=== PATIENT | female | born 1960 | race Caucasian/White ===

== ENCOUNTER → 2019-01-31 | Outpatient (CLI) | payer BC ==
--- NOTE | 2019-01-31 17:07 | RADIOLOGY IMAGING REPORT ---
FACILITY: [facility] [place] PATIENT NAME: UZAIR JOYNER : [id number] MR: [id number] V: [id number] EXAM DATE: ORDERING PHYSICIAN: PHYLLIS MIGUEL TECHNOLOGIST: Jenny Castro PROCEDURE: BILATERAL DIGITAL SCREENING MAMMOGRAM WITH CAD ASSISTED INTERPRETATION & 3D TOMOSYNTHESIS. REASON FOR STUDY: Screening. FAMILY HISTORY OF BREAST CANCER: Sister at age 58 and paternal aunt. BREAST PROCEDURES/TREATMENTS: None. COMPARISON: 02/09/17. VIEWS OBTAINED: Bilateral 2D & 3D full field CC & MLO projections. BREAST DENSITY: The breasts are almost entirely fatty. MAMMOGRAM FINDINGS: The parenchymal pattern has remained stable allowing for difference in mammographic technique & patient positioning. IMPRESSION: BIRADS 1: Negative. DIAGNOSTIC CATEGORY 1--NEGATIVE. RECOMMENDATIONS: ROUTINE MAMMOGRAM AND CLINICAL EVALUATION. Dictated by: Jaelyn Araujo M.D. on 01/31/2019 at 10:35 Transcribed by: JOSE on 01/31/2019 at 10:44 Approved by: Jaelyn Araujo M.D. on 01/31/2019 at 17:03 [facility]
== END ==
LOC: MAMO 01:42
PROVIDERS: ATTEND Nurse Practitioner Psychiatric/Mental Health
DX: Z12.31 Encounter for screening mammogram for malignant neoplasm of breast (principal); Z80.3 Family history of malignant neoplasm of breast
CPT/HCPCS: 77063; 77067